=== PATIENT | male | born 1965 | race Hispanic/Latino ===

== ENCOUNTER → 2025-03-11 | Outpatient (CLI) | payer OTHER ==
[2025-03-11 10:20] LABS: IMMATURE GRANULOCYTE ABSOLUTE 0.04 K/uL (0-1); NUCLEATED RED BLOOD CELLS 0.0 % (0.0-0.19); PLATELET COUNT (AUTO) 229 K/uL (130-400); RED BLOOD CELL COUNT(AUTO) 5.63 MIL/uL (4.50-6.20); RED CELL DISTRIBUTION WIDTH 13.5 % (11.0-15.5); WHITE BLOOD COUNT (AUTO) 7.5 K/uL (4.8-10.8)
[2025-03-11 10:34] LABS: ASPARTATE AMINOTRANSFERASE 40.0 U/L (10-37); CREATININE 0.7 mg/dL (0.5-1.3); GLOMERULAR FILTR. RATE CALC 105.0 mL/min (>90); GLUCOSE,RANDOM 115.0 mg/dL (70-105); SODIUM SERUM 142.0 mmol/L (136-145); TOTAL PROTEIN, SERUM 7.5 g/dL (6.0-8.3); UREA NITROGEN, BLOOD 10.0 mg/dL (7-18)
== END | disposition home or self-care (01) ==
LOC: LAB 09:05
PROVIDERS: ATTEND Internal Medicine Gastroenterology
DX: K43.9 Ventral hernia without obstruction or gangrene (principal)
CPT/HCPCS: 36415; 80053; 85025

== ENCOUNTER → 2025-03-12 | Outpatient (CLI) | payer OTHER ==
[~2025-03-12] MED LIST: IOHEXOL 350 MG/ML 100ML INFUS..BTL IV ONE; IOHEXOL-350 75 ML VIAL IV ONE
--- NOTE | 2025-03-12 21:15 | HMCIMG ---
EXAM CT Abdomen and Pelvis with IV contrast (7-minute renal delay) CLINICAL HISTORY Ventral hernia without obstruction. TECHNIQUE Axial computed tomography images of the abdomen and pelvis obtained with intravenous contrast, including delayed renal phase imaging. CONTRAST With intravenous contrast. COMPARISON None provided. FINDINGS Lung Bases Lung bases are clear. No pleural effusion. Liver Hepatomegaly with craniocaudal length measuring approximately 17 cm. Diffuse hepatic steatosis. No focal hepatic lesion. Gallbladder and Bile Ducts Gallbladder surgically absent. No intrahepatic or extrahepatic biliary dilatation. Pancreas Normal in size and contour. No peripancreatic inflammation. Spleen Spleen measures approximately 15 cm, consistent with splenomegaly. No focal lesion. Adrenal Glands Unremarkable. Kidneys, Ureters and Bladder Left lower-pole renal calculus measuring 0.7 cm. Left upper-pole simple cortical cyst measuring 1.0 ??? 1.0 cm. Right mid-pole cortical cyst measuring 1.5 ??? 1.4 cm with surrounding perinephric fat stranding and subtle marginal wall enhancement, features suggesting an infected renal cortical cyst. No hydronephrosis or hydroureter. Urinary bladder unremarkable. Stomach and Bowel Diffuse uncomplicated colonic diverticulosis. No evidence of bowel obstruction or enterocolitis. Stomach unremarkable. Appendix Appendix measures 0.3 cm in maximal diameter; retrocecal; no periappendiceal inflammation. Peritoneum No free fluid or pneumoperitoneum. Hernias Umbilical hernia with a 1.1-cm fascial defect containing fat with associated fat stranding, compatible with inflammatory change; no bowel involvement. Lymph Nodes No abdominal or pelvic lymphadenopathy. Reproductive Organs Prostate enlarged, volume approximately 32 cc. Vasculature Abdominal aorta normal in calibre. No aneurysm. Bones No acute osseous abnormality. Background age-related degenerative change. IMPRESSION: 1. Right mid-pole renal cyst measuring 1.5 ??? 1.4 cm with surrounding perinephric fat stranding and subtle marginal wall enhancement, suggesting an infected renal cortical cyst. 2. Umbilical hernia with a 1.1-cm fascial defect containing fat and associated fat stranding, compatible with inflammatory change. No bowel involvement. 3. Hepatomegaly with craniocaudal length measuring approximately 17 cm and diffuse hepatic steatosis. No focal hepatic lesion. 4. Splenomegaly with spleen measuring approximately 15 cm. 5. Left lower-pole renal calculus measuring 0.7 cm. 6. Left upper-pole simple cortical cyst measuring 1.0 ??? 1.0 cm. 7. Diffuse uncomplicated colonic diverticulosis. 8. Prostatomegaly with prostate volume approximately 32 cc. 9. Status post cholecystectomy. /[facility] [place]
== END | disposition home or self-care (01) ==
LOC: RAH 08:54 → EDUNIT# 09:30
PROVIDERS: ATTEND Surgery
DX: N28.1 Cyst of kidney, acquired (principal); N40.0 Benign prostatic hyperplasia without lower urinary tract symptoms; N20.0 Calculus of kidney; K42.9 Umbilical hernia without obstruction or gangrene; K76.0 Fatty (change of) liver, not elsewhere classified; K57.30 Diverticulosis of large intestine without perforation or abscess without bleeding; R16.2 Hepatomegaly with splenomegaly, not elsewhere classified; K43.9 Ventral hernia without obstruction or gangrene; Z90.49 Acquired absence of other specified parts of digestive tract; Z98.890 Other specified postprocedural states
CPT/HCPCS: 74177; Q9967